=== PATIENT | male | born 1995 | race Caucasian/White ===

== ENCOUNTER 2021-05-06 09:37 | Emergency (ER) | payer OTHER ==
--- NOTE | 2021-05-06 10:13 | ER ---
Nurse's Notes [facility] Name: Sancho Bhakta Age: 26 yrs Sex: Male : 1995 Arrival Date: 05/06/2021 Time: 09:39 Bed 13 Private MD: Diagnosis: Laceration of the left hand Presentation: 05/06 09:51 Chief complaint: Patient states: approximately 3 cm laceration to palm of L hand that ss occurred while grabbing a cutting tool. Coronavirus screen: Client denies travel out of the [place] in the last 14 days. Ebola Screen: Patient denies exposure to infectious person. Patient denies travel to an Ebola-affected area in the 21 days before illness onset. Complicating Factors: There are no complicating factors for this patient. Initial Sepsis Screen: Does the patient meet any 2 criteria? No. Patient's initial sepsis screen is negative. Does the patient have a suspected source of infection? No. Patient's initial sepsis screen is negative. Risk Assessment: Do you want to hurt yourself or someone else? Patient reports no desire to harm self or others. Onset of symptoms was May 06, 2021. 09:51 Method Of Arrival: Ambulatory ss 09:51 Acuity: SHABNAM 4 ss Historical: - Allergies: 10:00 No Known Allergies; ss - PMHx: 10:00 acid reflux; ss - PSHx: 10:00 Hernia repair; ss - Immunization history:: Last tetanus immunization: < 5 years ago. - Social history:: Smoking status: Patient denies any tobacco usage or history of. Screenin:03 Abuse screen: Denies threats or abuse. Denies injuries from another. Nutritional ss screening: No deficits noted. Tuberculosis screening: Never had TB. Fall Risk None identified. Assessment: 10:03 General: Appears in no apparent distress. comfortable, Behavior is calm, cooperative. ss Pain: Complains of pain in palm of left hand Pain currently is 4 out of 10 on a pain scale. Neuro: Level of Consciousness is awake, alert, obeys commands, Oriented to person, place, time, situation. Cardiovascular: Capillary refill < 3 seconds is brisk in bilateral fingers Patient's skin is warm and dry. Respiratory: Airway is patent Respiratory effort is even, unlabored, Respiratory pattern is regular, symmetrical. EENT: Nares are clear. Derm: Skin is intact, is healthy with good turgor, Skin is dry, Skin is pink, warm \T\ dry. normal. Musculoskeletal: Circulation, motion, and sensation intact. Range of motion: intact in all extremities. Injury Description: Laceration sustained to palm of left hand is 0.5 to 2.5 cm long, not bleeding. Vital Signs: 09:51 BP 153 / 90; Pulse 100; Resp 16; Temp 98.6(TE); Pulse Ox 97% on R/A; Weight 90.72 kg; ss Height 5 ft. 7 in. (170.18 cm); Pain 4/10; 09:51 Body Mass Index 31.32 (90.72 kg, 170.18 cm) ED Course: 09:39 Patient arrived in ED. mr 09:44 Dejuan Ibanez PA is PHCP. [email or web address] 09:44 Isaac Gilliland MD is Attending Physician. [facility] 09:54 Triage completed. ss 09:56 Irrigation of laceration on left hand. Wound care: to laceration located on left hand kj1 was cleaned with soaked in dressed with Neosporin, 4X4s, Kerlix, Patient tolerated well. 10:00 Mary Ann Moyer, SHARON is Primary Nurse. ss 10:00 Arm band placed on right wrist. ss 10:03 Patient has correct armband on for positive identification. Bed in low position. Call light in reach. 10:20 No provider procedures requiring assistance completed. Patient did not have IV access aj2 during this emergency room visit. Administered Medications: 10:00 Drug: Lidocaine (1 %) 5 ml {Note: Administered by JOHNNIE Zaidi.} Volume: 5 ml; Route: ss Infiltration; Outcome: 10:13 Discharge ordered by . rios 10:20 Discharged to home ambulatory. aj2 10:20 Condition: stable 10:20 Discharge instructions given to patient, Instructed on discharge instructions, follow up and referral plans. Demonstrated understanding of instructions, follow-up care, wound care. 10:22 Patient left the ED. aj2 Signatures: Dejuan Ibanez PA PA jmm Rivera Jessica Mary Ann Moyer, SHARON RN Jocelin Gonzalez kj1 Renny Hough aj2
--- NOTE | 2021-05-06 10:13 | EDPHYS ---
Physician Documentation [facility] Name: Sancho Bhakta Age: 26 yrs Sex: Male : 1995 Arrival Date: 05/06/2021 Time: 09:39 Bed 13 Private MD: ED Physician Isaac Gilliland HPI: 05/06 10:09 This 26 yrs old Male presents to ER via Ambulatory with complaints of jmm Laceration To Hand. 10:09 The laceration(s) is(are) located on the left hand. Onset: The symptoms/episode jmm began/occurred acutely, just prior to arrival. Associated signs and symptoms: Pertinent negatives:. This is a 26-year-old male with no Tali condition presents emerged part with complaints of left hand laceration which occurred while at work. Patient states he cut himself with a pair of pliers. Denies other injury. Patient states he is up-to-date on his tetanus this immunization.. Historical: - Allergies: 10:00 No Known Allergies; ss - PMHx: 10:00 acid reflux; ss - PSHx: 10:00 Hernia repair; ss - Immunization history:: Last tetanus immunization: < 5 years ago. - Social history:: Smoking status: Patient denies any tobacco usage or history of. ROS: 10:09 Constitutional: Negative for fever, chills, and weight loss, Cardiovascular: Negative jmm for chest pain, palpitations, and edema, Respiratory: Negative for shortness of breath, cough, wheezing, and pleuritic chest pain. 10:09 Skin: Positive for laceration(s). 10:09 All other systems are negative. Exam: 10:09 Constitutional: This is a well developed, well nourished patient who is awake, alert, jmm and in no acute distress. Head/Face: atraumatic. Eyes: EOMI, no conjunctival erythema appreciated ENT: Moist Mucus Membranes Neck: Trachea midline, Supple Chest/axilla: Normal chest wall appearance and motion. Cardiovascular: Regular rate and rhythm. No edema appreciated Respiratory: Normal respirations, no respiratory distress appreciated Abdomen/GI: Non distended, soft Back: Normal ROM 10:09 Musculoskeletal/extremity: Full range of motion appreciated to the left hand, less than 2-second distal cap refill, compartments are soft, neurovascular intact. 10:09 Skin: 3 cm laceration noted to the palm of the left hand, no active bleeding appreciated. 10:09 Neuro: Orientation: is normal, Mentation: is normal, Memory: is normal. 10:09 Psych: Behavior/mood is pleasant, cooperative. Vital Signs: 09:51 BP 153 / 90; Pulse 100; Resp 16; Temp 98.6(TE); Pulse Ox 97% on R/A; Weight 90.72 kg; ss Height 5 ft. 7 in. (170.18 cm); Pain 4/10; 09:51 Body Mass Index 31.32 (90.72 kg, 170.18 cm) ss Laceration: 10:11 Wound Repair of 3cm ( 1.2in ) subcutaneous laceration to left hand. Distal jmm neuro/vascular/tendon intact. Anesthesia: Local anesthetic administered with 5 mls of 1% lidocaine. Wound prep: Simple cleansing with betadine by me. Skin closed with 5 4-0 Prolene using simple sutures and sterile technique. Patient tolerated well. MDM: 10:03 Patient medically screened. rios 10:11 Data reviewed: vital signs, nurses notes. Counseling: I had a detailed discussion with rios the patient and/or guardian regarding: the historical points, exam findings, and any diagnostic results supporting the discharge/admit diagnosis, the need for outpatient follow up, to return to the emergency department if symptoms worsen or persist or if there are any questions or concerns that arise at home. ED course: No foreign bodies appreciated on inspection of the wound. Patient given wound infection return precautions. Patient understood agrees plan of care.. Administered Medications: 10:00 Drug: Lidocaine (1 %) 5 ml {Note: Administered by PA. Dejuan} Volume: 5 ml; Route: ss Infiltration; Disposition: 13:32 Co-signature as Attending Physician, Isaac Gilliland MD I agree with the assessment and kdr plan of care. Disposition Summary: 05/06/21 10:13 Discharge Ordered Location: Home rios Condition: Stable rios Diagnosis - Laceration of the left hand rios Followup: rios - With: Private Physician - When: 1 week - Reason: Recheck today's complaints, Continuance of care, Re-evaluation by your physician Discharge Instructions: - Discharge Summary Sheet rios - Laceration Care, Adult rios Forms: - Medication Reconciliation Form jmm - Thank You Letter jmm - Antibiotic Education jmm - Prescription Opioid Use [facility] Signatures: Isaac Gilliland MD MD kdr Mickail, Joel, PA PA jmm Smirch, Shelby, SHARON RN ss
[2021-05-06] MEDS ORDERED: LIDOCAINE 1% MPF 5 ML VIAL ONE (10:14)
[2021-05-06 10:27] VITALS: BP 153/90; TEMP 98.6; O2SAT 97
== END 2021-05-06 10:22 | disposition home or self-care (01) ==
LOC: ER 09:37
PROC: 0JQK0ZZ Repair Left Hand Subcutaneous Tissue and Fascia, Open Approach (ICD-10-PCS; principal; 2021-05-06)
DX: S61.412A Laceration without foreign body of left hand, initial encounter (principal); W27.8XXA Contact with other nonpowered hand tool, initial encounter; Y92.89 Other specified places as the place of occurrence of the external cause; Y99.8 Other external cause status
CPT/HCPCS: 99283